=== PATIENT | female | born 1965 | race Caucasian/White ===

== ENCOUNTER 2018-07-08 15:50 | Emergency (ER) ==
[2018-07-08 16:02] VITALS: BP 154/83; TEMP 97.8; BMI 43.9
[2018-07-08] MEDS ORDERED: TORADOL IM STA (16:05)
[2018-07-08] MEDS ORDERED: PHENERGAN 25 MG/ML VIAL IM STA (16:05)
[2018-07-08] MEDS ORDERED: STADOL IM STA (16:05)
--- NOTE | 2018-07-08 16:46 | CT ---
EXAM: CT abdomen pelvis contrast TECHNIQUE: Helical axial CT of the abdomen and pelvis was performed contrast with coronal and sagit sandeep reconstructions. COMPARISON: CT abdomen pelvis from 12/04/2017 HISTORY: Abdominal pain and hematuria FINDINGS: On the previous examination there was a stone in the calyceal system of the right kidney. This stone has now migrated to the right ureteropelvic junction and is causing moderate hydronephrosis. No oth er ureteral or renal stones are identified. There is no left-sided hydronephrosis. There are no jhony picious renal masses or large cysts. There is no filling defect in the urinary bladder which is deco mpressed. Uterus and adnexa are unremarkable. There is no mesenteric inflammation, free air, free fluid or bowel wall thickening or edema or pathol ogic lymph nodes or obstruction or ileus. The appendix is not seen.. There are no inflamed colonic d iverticula. The liver, spleen, pancreas,and adrenal glands show no acute abnormality. Lung bases are well-aerate d. There is a calcified granuloma in the left lung base. There is no hiatal hernia. There has been pr ior cholecystectomy and prior stomach surgery. There is no biliary or pancreatic ductal dilatation. There is a small fat-containing umbilical hernia. The aorta is normal with no aneurysm or calcific at herosclerosis. There are no acute osseous abnormalities. IMPRESSION: 1. Obstructing stone at the right UPJ as described. 2. Other miscellaneous nonacute findings as noted above.
--- NOTE | 2018-07-08 17:05 | ED.PDOC ---
General ED Provider: Dr. VANNA SALGADO-ER Chief Complaint: Abdominal Pain Stated Complaint: rubio hurchica and chalo got blood in my urine Time Seen by Physician: 15:55 Mode of Arrival: Walk-In Information Source: Patient Exam Limitations: No limitations Primary Care Provider: RONALDO YOUNG Nursing and Triage Documentation Reviewed and Agree: Yes Does patient meet sepsis criteria?: No System Inflammatory Response Syndrome: Not Applicable Sepsis Protocol: For patient's 13 years and over: Temp is 96.8 and below OR 101 and greater Pulse >90 BPM Resp >20/minute Acutely Altered Mental Status Are patient's symptoms suggestive of a new infection, such as: -Pneumonia -Skin, Soft Tissue -Endocarditis -UTI -Bone, Joint Infection -Implantable Device -Acute Abdominal Infection -Wound Infection -Meningitis -Blood Stream Catheter Infection -Unknown Complaint Exam - Complaint/Exam Patient Complains of: Reports: Pain Initial Severity: Mild Current Severity: Moderate Location of Pain: Reports: Right, Flank Character: Reports: Dull, Cramping Alleviating: Reports: None Ovarian Torsion Risk Factors: Reports: Reproductive age Surgical Obstruction Risk Factors: Reports: None RH Status: Unknown Differential Diagnoses: UTI Review of Systems - Review Of Systems Constitutional: Reports: No symptoms Eyes: Reports: No symptoms Ears, Nose, Mouth, Throat: Reports: No symptoms Respiratory: Reports: No symptoms Cardiac: Reports: No symptoms GI: Reports: No symptoms : Reports: No symptoms Musculoskeletal: Reports: Back pain Skin: Reports: No symptoms Neurological: Reports: No symptoms Endocrine: Reports: No symptoms Hematologic/Lymphatic: Reports: No symptoms All Other Systems: Reviewed and Negative Past Medical History - Past Medical History Previously Healthy: No Endocrine: Reports: Unknown Cardiovascular: Reports: Unknown Respiratory: Reports: Unknown Hematological: Reports: Unknown Gastrointestinal: Reports: Unknown Genitourinary: Reports: Unknown Neuro/Psych: Reports: Unknown Musculoskeletal: Reports: Unknown Cancer: Reports: Unknown Last Menstrual Period: menopause - Surgical History General Surgical History: Reports: Unknown - Family History Family History: Reports: Unknown - Social History Smoking Status: Former smoker Hx Substance Use: No Alcohol Screening: None Physical Exam - Physical Exam Appearance: Well-appearing, No pain distress, Well-nourished Pain Distress: Moderate Eyes: VARGAS, EOMI, Conjunctiva clear ENT: Ears normal, Nose normal, Oropharynx normal Neck: Supple Respiratory: Airway patent, Breath sounds clear, Breath sounds equal, Respirations nonlabored Cardiovascular: RRR, Pulses normal, No rub, No murmur GI/: Soft, Nontender, No masses, Bowel sounds normal, No Organomegaly Musculoskeletal: Limited ROM Skin: Warm, Dry, Normal color Neurological: Sensation intact, Motor intact, Reflexes intact, Cranial nerves intact, Alert, Oriented Psychiatric: Affect appropriate Interpretation - Radiology Interpretation Radiology Interpretation By: Radiologist Radiology Results: Positive Exam Interpreted: CT Scan Critical Care Note - Critical Care Note Total Time (mins): 0 Course - Course Hematology/Chemistry: 07/08/18 16:10 07/08/18 16:10 Orders, Labs, Meds: Lab Review 07/08/18 07/08/18 07/08/18 16:10 16:10 16:10 WBC 8.72 RBC 4.56 Hgb 14.5 Hct 42.7 MCV 93.6 MCH 31.8 H MCHC 34.0 RDW Coeff of [place] 12.1 Plt Count 257 Immature Gran % (Auto) 0.5 Neut % (Auto) 64.3 Lymph % (Auto) 24.9 Nash % (Auto) 6.0 Eos % (Auto) 3.7 Baso % (Auto) 0.6 Immature Gran # (Auto) 0.0 Neut # (Auto) 5.6 Lymph # (Auto) 2.2 Nash # (Auto) 0.5 Eos # (Auto) 0.3 Baso # (Auto) 0.1 ESR 8 Sodium 140 Potassium 3.8 Chloride 103 Carbon Dioxide 31 H Anion Gap 9.8 BUN 10 Creatinine 0.81 Estimated GFR (MDRD) 74.00 BUN/Creatinine Ratio 12.34 Glucose 120 H Calcium 8.8 Total Bilirubin 0.2 AST 22 ALT 18 Alkaline Phosphatase 86 Total Protein 7.4 Albumin 3.9 Globulin 3.5 Albumin/Globulin Ratio 1.11 Amylase 69 Lipase 167 Serum , Qual Negative Urine Color Urine Clarity Urine pH Ur Specific [place] Urine Protein Urine Glucose (UA) Urine Ketones Urine Blood Urine Nitrite Urine Bilirubin Urine Urobilinogen Ur Leukocyte Esterase Urine Microscopic RBC Ur Squamous Epith Cells 07/08/18 16:15 WBC RBC Hgb Hct MCV MCH MCHC RDW Coeff of [place] Plt Count Immature Gran % (Auto) Neut % (Auto) Lymph % (Auto) Nash % (Auto) Eos % (Auto) Baso % (Auto) Immature Gran # (Auto) Neut # (Auto) Lymph # (Auto) Nash # (Auto) Eos # (Auto) Baso # (Auto) ESR Sodium Potassium Chloride Carbon Dioxide Anion Gap BUN Creatinine Estimated GFR (MDRD) BUN/Creatinine Ratio Glucose Calcium Total Bilirubin AST ALT Alkaline Phosphatase Total Protein Albumin Globulin Albumin/Globulin Ratio Amylase Lipase Serum , Qual Urine Color Audrey Urine Clarity Turbid Urine pH 5.5 Ur Specific [place] >=1.030 Urine Protein 1+ Urine Glucose (UA) Negative Urine Ketones Negative Urine Blood 3+ Urine Nitrite Negative Urine Bilirubin Negative Urine Urobilinogen 0.2 Ur Leukocyte Esterase Negative Urine Microscopic RBC Tntc Ur Squamous Epith Cells Not present Orders Category Date Time Status AMYLASE Stat LAB 07/08/18 16:10 Completed CBC W/ AUTO DIFF Stat LAB 07/08/18 16:10 Completed COMPREHENSIVE METABOLIC PANEL Stat LAB 07/08/18 16:10 Completed ESR Stat LAB 07/08/18 16:10 Completed LIPASE Stat LAB 07/08/18 16:10 Completed SERUM Stat LAB 07/08/18 16:10 Completed URINALYSIS C & S IF INDICATED Stat LAB 07/08/18 16:15 Completed Butorphanol Tartrate [Stadol] MEDS 07/08/18 16:05 Discontinued 2 mg IM ONCE STA Ketorolac Tromethamine [Toradol] MEDS 07/08/18 16:05 Discontinued 60 mg IM ONCE STA Promethazine HCl [Phenergan 25 mg/ml Vial] MEDS 07/08/18 16:05 Discontinued 25 mg IM ONCE STA CT ABD/PEL WO RENAL STONE PROT Stat RADS 07/08/18 15:58 Completed Medications Discontinued Medications Generic Name Dose Route Start Last Admin Trade Name Basil PRN Reason Stop Dose Admin Butorphanol Tartrate 2 mg 07/08/18 16:05 07/08/18 16:24 Stadol IM 07/08/18 16:06 2 mg ONCE STA Administration Ketorolac Tromethamine 60 mg 07/08/18 16:05 07/08/18 16:24 Toradol IM 07/08/18 16:06 60 mg ONCE STA Administration Promethazine HCl 25 mg 07/08/18 16:05 07/08/18 16:23 Phenergan 25 Mg/Ml Vial IM 07/08/18 16:06 25 mg ONCE STA Administration Vital Signs: Temp Pulse Resp BP Pulse Ox 07/08/18 15:50 97.8 F 66 16 154/83 H 97 Departure - Departure Time of Disposition: 17:05 Disposition: HOME SELF-CARE Discharge Problem: Ureteral stone Instructions: Kidney Stones (ED) Condition: Good Pt referred to PMD for follow-up: Yes IPMP verified?: No Additional Instructions: strain all urine===norco 7.5mg q 4hrs prn pain #10---flomax 0.4 daily #3-- plenty of fluids--f/u with pcp glynn Allergies/Adverse Reactions: Allergies No Known Allergies Allergy (Unverified 07/08/18 15:57) Home Medications: Ambulatory Orders Cefuroxime Axetil [Cefuroxime] 500 mg PO Q12H 07/08/18 Eszopiclone 2 mg PO BEDTIME 07/08/18 Mirtazapine 7.5 mg PO DAILY 07/08/18 Omeprazole 40 mg PO BID 07/08/18 Ondansetron HCl [Zofran] 4 mg PO DIRECTED PRN 07/08/18 Disposition Discussed With: Patient
== END 2018-07-08 17:48 | disposition home or self-care (01) ==
LOC: ED 15:50
DX: N20.1 Calculus of ureter (principal)
CPT/HCPCS: 36415; 74176; 80053; 81001; 82150; 83690; 84703; 85025; 85651; 96372; 99283

== ENCOUNTER 2019-04-08 14:28 | Outpatient (CLI) | END 2019-04-08 14:29 | disposition home or self-care (01) | LOC: RHC-LAB 14:28 → FCC-LAB 14:29 | PROVIDERS: ATTEND Family Medicine | DX: J02.9 Acute pharyngitis, unspecified (principal) | CPT/HCPCS: 87651 ==